=== PATIENT | female | born 1960 | race Caucasian/White ===

== ENCOUNTER → 2016-12-08 | Outpatient (CLI) | payer BC ==
--- NOTE | 2016-12-08 10:33 | WWHP ---
DATE OF SERVICE: 12/08/2016 CHIEF COMPLAINT: The patient is here for her routine gynecologic exam and mammogram. HPI: This is a 56-year-old G0 with an LMP of 2008. The patient is without gynecologic complaints. PAST MEDICAL HISTORY: Type 2 diabetes, chronic hypertension and gastroesophageal reflux disease. MEDICATIONS: 1. Xigduo 02/1000 mg 1 daily. 2. Januvia 100 mg daily. 3. Omeprazole 20 mg daily. 4. Aleve 2 daily. 5. Lisinopril 10 mg daily. 6. Triamterene hydrochlorothiazide 37.5/25 one every other day. 7. Calcium with vitamin D3 1 daily. 8. Multivitamin 1 daily. ALLERGIES: No known drug allergies. PAST SURGICAL HISTORY: Unremarkable. 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 SOCIAL HISTORY: She quit smoking in 2009 and has 0 to 1 alcoholic drink per month and denies drug use. She has been since 1987 and is retired from [employer]. She cares for her , who had a stroke approximately 2004. REVIEW OF SYSTEMS: She has gained about 6 pounds over the last year. She denies respiratory, cardiac, or GI problems. PHYSICAL EXAM: Blood pressure 142/82. Height 5 feet 5 inches. Weight 240 pounds. Temperature 97.6, pulse 85. This a well-developed, heavyset white female who is alert and oriented x3 in no acute distress. HEENT is within normal limits. NECK: Supple without mass or thyromegaly. CHEST AND LUNGS: Clear to auscultation. HEART: Regular rate and rhythm. Breasts are without mass or discharge. Axillary exam is negative for adenopathy. BACK: Negative for CVA tenderness. ABDOMEN: Obese, soft, nontender, without palpable masses. PELVIC EXAM: External genitalia reveals mild atrophy without lesions. Cervix and vagina reveal mild atrophy without lesions. There is no evidence of prolapse. The uterus is midposition, nongravid size and nontender. There are no palpable adnexal masses or tenderness. Bimanual exam is somewhat limited secondary to her size. Rectovaginal exam is negative for mass or tenderness and is negative for occult blood. EXTREMITIES: Nontender. IMPRESSION: A 56-year-old menopausal female with unremarkable gynecologic exam. PLAN: 1. Pap smear was deferred, since she had a normal one less than 2 years ago. 2. Self breast examination was discussed. 3. Mammogram will be done today. 4. Osteoporosis prevention was discussed. 5. Colonoscopy was recommended and she states she will look into doing this, this year. 6. She will return in one year.
--- NOTE | 2016-12-09 10:33 | MM ---
Reason for exam: screening (asymptomatic). Last mammogram was performed 1 year ago. History: Patient is postmenopausal and is nulliparous. Physical Findings: A clinical breast exam by your physician is recommended on an annual basis and results should be correlated with mammographic findings. MG 3D Screening Mammo W/Cad Bilateral CC and MLO view(s) were taken. Prior study comparison: December 04, 2015, bilateral MG 3d screening mammo w/cad. November 20, 2014, bilateral MG screening mammo w CAD. November 17, 2013, bilateral digital screening mammo w/CAD. November 16, 2012, bilateral digital screening mammo w/CAD. The breast tissue is heterogeneously dense. This may lower the sensitivity of mammography. There is no discrete abnormality. No significant changes when compared with prior studies. ASSESSMENT: Negative, BI-RAD 1 RECOMMENDATION: Routine screening mammogram of both breasts in 1 year.
== END | disposition home or self-care (01) ==
LOC: WWCWWP 09:16
PROVIDERS: ATTEND Obstetrics & Gynecology
DX: Z12.31 Encounter for screening mammogram for malignant neoplasm of breast (principal)
CPT/HCPCS: 77063; G0202

== ENCOUNTER → 2017-12-21 | Outpatient (CLI) | payer BC ==
[2017-12-21 08:17] VITALS: BP 123/66; PULSE 77; TEMP 97.9; BMI 39.1
--- NOTE | 2017-12-21 08:58 | P.HPOB ---
History of Present Illness H&P Date: 12/21/17 Chief Complaint: The patient is here for her routine gynecologic exam and mammogram. This is a 57-year-old G0 with an LMP of 2007. The patient is without gynecologic complaints and denies any postmenopausal bleeding. Review of Systems She denies respiratory, cardiac, or G.I. problems. Past Medical History Past Medical History: No Reported History, Diabetes Mellitus, GERD/Reflux, Hypertension History of Any Multi-Drug Resistant Organisms: None Reported Past Surgical History: No Surgical Hx Reported Smoking Status: Former smoker Past Alcohol Use History: Occasional (0-1 drink/month) - Past Family History Father Family Medical History: Cancer, Myocardial Infarction ([place]) Additional Family Medical History / Comment(s): HEART DISEASE,BONE Mother Family Medical History: Rheumatoid Arthritis (RA) Medications and Allergies Home Medications and Allergies Comment(s): Xigduo 5/1000mg 1 daily. Januvia 100 mg daily. Omeprazole 20 mg daily. Alleve to daily. Lisinopril 10 mg daily. Triamterene hydrochlorothiazide 37.5/ 25 1 every other day. Calcium with vitamin D 31 daily. Multivitamin 1 daily. Exam - Vital Signs Vital signs: Vital Signs Temp Pulse BP 12/21/17 08:05 97.9 F 77 123/66 Intake and Output 12/20/17 12/21/17 12/21/17 22:59 06:59 14:59 Other: Weight 106.633 kg Patient Weight 12/22/17 06:59 Weight 106.633 kg This is a well-developed well-nourished white female who is alert and oriented times 3 in no acute distress. BMI 39. HEENT: Within normal limits. NECK: Supple without mass or thyromegaly. CHEST AND LUNGS: Clear to auscultation. HEART: Regular rate and rhythm. BREASTS: Are without mass or discharge. AXILLARY EXAM: Negative for adenopathy. BACK: Negative for CVA tenderness. ABDOMEN: Obese, Soft, nontender, without palpable masses. PELVIC EXAM: Normal external genitalia with mild atrophy. Cervix and vagina appear normal with mild to moderate atrophy. There is no unusual discharge. There is no evidence of prolapse. The uterus is midposition, nongravid size and nontender. There are no palpable adnexal masses or tenderness. Bimanual examination is somewhat limited secondary to her size. RECTAL EXAM: recto vaginal exam is negative for mass or tenderness and is negative for occult blood. EXTREMITIES: Nontender. IMPRESSION: 1. 57-year-old menopausal female with normal gynecologic exam. PLAN: 1. Pap smear was performed. 2. Self breast examination was discussed. 3. Screening mammogram will be done today. 4. Osteoporosis prevention was discussed. We'll plan during a bone density test in one year. 5. I recommended screening colonoscopy and she states she will do this through Dr. Mcmahan. 6. She will return in one year.
--- NOTE | 2017-12-23 10:33 | MM ---
Reason for exam: screening (asymptomatic). Last mammogram was performed 1 year ago. History: Patient is postmenopausal and is nulliparous. Physical Findings: A clinical breast exam by your physician is recommended on an annual basis and results should be correlated with mammographic findings. MG 3D Screening Mammo W/Cad Bilateral CC and MLO view(s) were taken. Prior study comparison: December 08, 2016, bilateral MG 3d screening mammo w/cad. December 04, 2015, bilateral MG 3d screening mammo w/cad. There are scattered fibroglandular densities. Developing asymmetry left outer CC view. This finding is changed when compared with previous exams. ASSESSMENT: Probably benign, BI-RAD 3 RECOMMENDATION: Follow-up diagnostic mammogram of the left breast in 6 months.
== END | disposition home or self-care (01) ==
LOC: WWCWWP 07:53
PROVIDERS: ATTEND Obstetrics & Gynecology
DX: Z12.31 Encounter for screening mammogram for malignant neoplasm of breast (principal)
CPT/HCPCS: 77063; 77067

== ENCOUNTER → 2018-06-27 | Outpatient (CLI) | payer BC ==
--- NOTE | 2018-06-28 08:03 | MM ---
Reason for exam: follow-up at short interval from prior study. Last mammogram was performed 6 months ago. History: Patient is postmenopausal and is nulliparous. Physical Findings: Nurse did not find any significant physical abnormalities on exam. MG Diagnostic Mammo LT w CAD CC and MLO view(s) were taken of the left breast. Prior study comparison: December 21, 2017, bilateral MG 3d screening mammo w/cad. December 08, 2016, bilateral MG 3d screening mammo w/cad. There are scattered fibroglandular densities. Lateral asymmetric density remains unchanged. Medial asymmetric density which persists on additional views. Ultrasound recommended. These results were verbally communicated with the patient and result sheet given to the patient on 06/27/18. ASSESSMENT: Incomplete: need additional imaging evaluation, BI-RAD 0 RECOMMENDATION: Ultrasound of the left breast. (left medial half)
--- NOTE | 2018-06-28 08:05 | USB ---
Reason for exam: additional evaluation requested from abnormal screening. History: Patient is postmenopausal and is nulliparous. US Breast Limited LT Left limited breast ultrasound including focal area of concern, retroareolar and axilla demonstrates no cystic or solid lesion seen. Scanned 7-12 o'clock. Additional short interval follow up recommended. These results were verbally communicated with the patient and result sheet given to the patient on 06/27/18. ASSESSMENT: Probably benign, BI-RAD 3 RECOMMENDATION: Follow-up diagnostic mammogram of both breasts in 6 months. (total 1 year follow up)
== END ==
LOC: RADMAMWWP 10:48
PROVIDERS: ATTEND Obstetrics & Gynecology
DX: R92.8 Other abnormal and inconclusive findings on diagnostic imaging of breast (principal)
CPT/HCPCS: 77065

== ENCOUNTER 2018-12-28 08:48 | Day surgery (SDC) | payer BC ==
[2018-12-26 14:17] VITALS: BMI 37.1
[~2018-12-28 08:48] MED LIST: LACTATED RINGERS 1,000 ML IV SCH; LIDOCAINE 1% 20 ML VIAL (10MG/ML) FOR IV START INTRADERMA PRN
[2018-12-28 09:44] VITALS: RESP 16; TEMP 97.1
[2018-12-28 09:44] LABS: Glucose,Whole Blood 135 mg/dL (75-99)
[2018-12-28] MEDS ORDERED: PROPOFOL 10 MG/ML 20 ML VIAL IV ONE (10:09)
--- NOTE | 2018-12-28 11:02 | P.PCN ---
Date of Procedure: 12/28/18 Description of Procedure: BRIEF HISTORY: Patient is a 58-year-old pleasant female scheduled for an elective colonoscopy as a part of colon cancer screening after having a positive cologuard in the outpatient setting. The patient denies any family history of colon cancer, any rectal bleeding, change in bowel habits. She has had no prior colonoscopy. PROCEDURE PERFORMED: Aborted/failed Colonoscopy. PREOPERATIVE DIAGNOSIS: Positive cologaurd, colon cancer screening. ESTIMATED BLOOD LOSS: Minimal. IV sedation per Anesthesia. PROCEDURE: After informed consent was obtained, the patient, was brought into the endoscopy unit. IV sedation was administered by Anesthesia under continuous monitoring. Digital rectal examination was normal. Initially the Olympus CF-190 flexible video colonoscope was then inserted in the rectum, gradually advanced into the sigmoid colon. Numerous diverticula were noted through the visualized colon and the colon was fixed and tortuous. The scope was not able to be safely advanced, and at this time was exchanged for a pediatric scope. Attempts to pass the sigmoid again unsuccessful and at this time the procedure was aborted. The patient tolerated the procedure well. IMPRESSION: 1. Aborted colonoscopy secondary to a fixed tortuous colon. 2. Sigmoid diverticulosis. RECOMMENDATIONS: Findings of this examination were discussed with the patient and her sister. Okay for diet today. Given the patient's positive screening with cologaurd we'll reschedule the patient for repeat colonoscopy with Dr. Robertson. Repeat colonoscopy is also unsuccessful patient will benefit from x-ray barium enema.
[2018-12-28 11:27] VITALS: BP 124/81; PULSE 77
== END 2018-12-28 12:13 | disposition home or self-care (01) ==
LOC: ORWHC2ENDO 08:48
PROVIDERS: ATTEND Internal Medicine
DX: Z12.11 Encounter for screening for malignant neoplasm of colon (principal); K57.30 Diverticulosis of large intestine without perforation or abscess without bleeding; Z53.09 Procedure and treatment not carried out because of other contraindication; I10 Essential (primary) hypertension; E78.5 Hyperlipidemia, unspecified; E11.9 Type 2 diabetes mellitus without complications; Z87.891 Personal history of nicotine dependence; K21.9 Gastro-esophageal reflux disease without esophagitis; Z79.899 Other long term (current) drug therapy
CPT/HCPCS: 45330; J2704; 45378

== ENCOUNTER → 2019-01-17 | Outpatient (CLI) | payer BC ==
[2019-01-17 13:00] VITALS: BP 135/77; PULSE 78; RESP 16; TEMP 97.1; BMI 39.6
--- NOTE | 2019-01-17 13:34 | P.HPOB ---
History of Present Illness H&P Date: 01/17/19 Chief Complaint: The patient is here for her routine gynecologic exam and ma mmogram. This is a 58-year-old G0 with an LMP of 2008. The patient is without gynecologic complaints and then denies any postmenopausal bleeding. The patient's screening mammogram on 12/21/2017 required a left breast workup. Left breast ultrasound done in June 2018 was probably benign. Bilateral diagnostic mammogram is now due. Review of Systems The patient has lost 9 pounds over the last year. She denies respiratory, cardiac, or G.I. problems. Past Medical History Past Medical History: Diabetes Mellitus, GERD/Reflux, Hypertension, Osteoarthritis (OA), Skin Disorder Additional Past Medical History / Comment(s): hx peptic ulcer yrs ago, psoriasis, type II diabetes. 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 History of Any Multi-Drug Resistant Organisms: None Reported Past Surgical History: No Surgical Hx Reported Additional Past Surgical History / Comment(s): D&C. Colonoscopy 2018(Incomplete). Past Anesthesia/Blood Transfusion Reactions: Family History of Problems w/ Anesthesia Additional Past Anesthesia/Blood Transfusion Reaction / Comment(s): sister-PONV Past Psychological History: No Psychological Hx Reported Smoking Status: Former smoker Past Alcohol Use History: Occasional (One per month) Additional Past Alcohol Use History / Comment(s): quit smoking 2009, smoked for 5 yrs, < 1 PPD Past Drug Use History: None Reported Additional History: She has been since 1987 and is retired from [employer]. She cares for her who had a stroke in 2004. - Past Family History Father Family Medical History: Cancer, Myocardial Infarction ([place]) Additional Family Medical History / Comment(s): HEART DISEASE,BONE Mother Family Medical History: Rheumatoid Arthritis ([place]) Medications and Allergies Home Medications Medication Instructions Recorded Confirmed Type Dapagliflozin/Metformin HCl 1 each PO 1800 12/21/17 01/17/19 History [Xigduo Xr 5 mg-1,000 mg Tablet] Lisinopril [Zestril] 10 mg PO 1800 12/21/17 01/17/19 History Multivitamins, Thera [Multivitamin 1 tab PO DAILY 12/21/17 01/17/19 History (formulary)] Naproxen Sodium [Aleve] 440 mg PO 1800 12/21/17 01/17/19 History Omeprazole 20 mg PO 1800 12/21/17 01/17/19 History Triamterene-Hctz 37.5-25Mg 1 cap PO Q48H 12/21/17 01/17/19 History [Dyazide 37.5-25 Capsule] sitaGLIPtin [Januvia] 100 mg PO 1800 12/21/17 01/17/19 History Atorvastatin [Lipitor] 10 mg PO 1800 12/26/18 01/17/19 History [place]-3S/Dha/Epa/Fish Oil/D3 [Fish 1 each PO 1800 12/26/18 01/17/19 History Oil Gummies] Allergies Allergy/AdvReac Type Severity Reaction Status Date / Time No Known Allergies Allergy Verified 01/17/19 12:54 Exam Vital Signs Temp Pulse Resp BP Pulse Ox 01/17/19 12:57 97.1 F L 78 16 135/77 97 Intake and Output 01/16/19 01/17/19 01/17/19 22:59 06:59 14:59 Other: Weight 104.78 kg Height 5'4", weight 231 pounds, BMI 39.7. This is a well-developed well-nourished obese white female who is alert and oriented times 3 in no acute distress. HEENT: Within normal limits. NECK: Supple without mass or thyromegaly. CHEST AND LUNGS: Clear to auscultation. HEART: Regular rate and rhythm. BREASTS: Are without mass or discharge. AXILLARY EXAM: Negative for adenopathy. BACK: Negative for CVA tenderness. ABDOMEN: Soft, obese, nontender, without palpable masses. PELVIC EXAM: Normal external genitalia with mild to moderate atrophy. Cervix and vagina appear normal with mild atrophy. There is no unusual discharge. There is no evidence of prolapse. The uterus is midposition, nongravid size and nontender. There are no palpable adnexal masses or tenderness. Bimanual examination is somewhat limited secondary to her size. RECTAL EXAM: rectovaginal exam is negative for mass or tenderness and is negative for occult blood. EXTREMITIES: Nontender. IMPRESSION: 1. 58-year-old menopausal female with normal gynecologic exam. 2. Overweight. PLAN: 1. Pap smear was deferred since she had a normal one on 12/21/2017. 2. Self breast awareness was discussed with the patient. 3. Bilateral diagnostic mammogram will be done today. 4. Osteoporosis prevention was discussed. I have stressed the importance of adequate calcium, vitamin D and regular exercise. Recommended amounts of calcium and vitamin D were also discussed. I have recommended bone density screening since she has never had this done. She would like to do this next year. 5. She states her colonoscopy that was recently done was incomplete and she is scheduled to have this redundant in the next few months. 6.She was advised to return in one year for her annual well woman exam.
--- NOTE | 2019-01-17 13:57 | MM ---
Reason for exam: additional evaluation requested from prior study. Last mammogram was performed 7 months ago. History: Patient is postmenopausal and is nulliparous. Physical Findings: Dr. García did breast exam. MG 3D Diag Mammo W/Cad MICHAEL Bilateral CC and MLO view(s) were taken. Prior study comparison: June 27, 2018, left breast MG diagnostic mammo LT w CAD. December 21, 2017, bilateral MG 3d screening mammo w/cad. The breast tissue is heterogeneously dense. This may lower the sensitivity of mammography. There is chronic nodularity in the right breast. There is no discrete abnormality. No significant new findings when compared with previous films. These results were verbally communicated with the patient and result sheet given to the patient on 01/17/19. ASSESSMENT: Benign, BI-RAD 2 RECOMMENDATION: Routine screening mammogram of both breasts in 1 year.
== END ==
LOC: WWCWWP 12:29
PROVIDERS: ATTEND Obstetrics & Gynecology
DX: R92.8 Other abnormal and inconclusive findings on diagnostic imaging of breast (principal)
CPT/HCPCS: 77062; 77066

== ENCOUNTER 2019-02-08 07:50 | Day surgery (SDC) | payer BC ==
[2019-02-03 17:41] VITALS: BMI 38.7
[~2019-02-08 07:50] MED LIST changes: -LIDOCAINE 1% 20 ML VIAL (10MG/ML) FOR IV START INTRADERMA PRN
[2019-02-08 08:13] VITALS: TEMP 98.7
[2019-02-08] MEDS ORDERED: LACTATED RINGERS 1,000 ML IV ONE ×2 (08:20)
[2019-02-08] MEDS ORDERED: LIDOCAINE 1% INJ 10MG/ML (20 ML MDV) ONE (08:27)
[2019-02-08] MEDS ORDERED: PROPOFOL 10 MG/ML 20 ML VIAL IV ONE (08:27)
[2019-02-08 08:28] LABS: Glucose,Whole Blood 150 mg/dL (75-99)
--- NOTE | 2019-02-08 08:52 | P.PCN ---
Date of Procedure: 02/08/19 Procedure(s) Performed: BRIEF HISTORY: Patient is a 58-year-old pleasant female scheduled for an elective colonoscopy as a part of screening for colorectal neoplasia. She was noted to have positive cologuard and hence had an attempted colonoscopy by last month that was unsuccessful. She is hence scheduled for repeat screening colonoscopy today. PROCEDURE PERFORMED: Colonoscopy. PREOPERATIVE DIAGNOSIS: Positive cologuard IV sedation per Anesthesia. PROCEDURE: After informed consent was obtained, the patient, was brought into the endoscopy unit. IV sedation was administered by Anesthesia under continuous monitoring. Digital rectal examination was normal. Initially the Olympus CF-160 flexible video colonoscope was then inserted in the rectum, gradually advanced into the cecum without any difficulty. Careful examination was performed as the scope was gradually being withdrawn. Ileocecal valve and the appendiceal orifice were visualized and appeared normal. Prep was excellent. Mucosa of the cecum, ascending colon, transverse colon, descending colon, sigmoid colon, and rectum appeared normal. Moderate sigmoid diverticula seen. Retroflexion was performed in the rectum and no lesions were seen. The patient tolerated the procedure well. IMPRESSION: Normal-appearing colon from rectum to cecum with no evidence of colorectal neoplasia. Moderate sigmoid diverticulosis. RECOMMENDATIONS: Findings of this examination were discussed with the patient as well as a family. She was advised to have a repeat screening colonoscopy in 10 years.
[2019-02-08 09:07] VITALS: BP 139/84; PULSE 71; RESP 18
== END 2019-02-08 09:46 | disposition home or self-care (01) ==
LOC: ORWHC2ENDO 07:50
PROVIDERS: ATTEND Internal Medicine Gastroenterology
DX: Z12.11 Encounter for screening for malignant neoplasm of colon (principal); K57.30 Diverticulosis of large intestine without perforation or abscess without bleeding; I10 Essential (primary) hypertension; E11.9 Type 2 diabetes mellitus without complications; K21.9 Gastro-esophageal reflux disease without esophagitis; Z79.899 Other long term (current) drug therapy
CPT/HCPCS: J2001; J2704; G0121

== ENCOUNTER → 2020-04-16 | Outpatient (CLI) | payer BC ==
[2020-04-16 15:25] VITALS: BP 128/79; PULSE 83; RESP 18; TEMP 98.3
--- NOTE | 2020-04-16 16:07 | P.HPOB ---
History of Present Illness H&P Date: 04/16/20 Chief Complaint: The patient is here for her routine gynecologic exam and ma mmogram. This is a 59-year-old G0 with an LMP of 2008. The patient has been experiencing vulvar pruritus for about 6 months. She denies any significant discharge or odor. She has not been sexually active in recent years. She is otherwise without complaints and denies postmenopausal bleeding. Review of Systems The patient has lost 3 pounds over the last year. She denies respiratory, cardiac, or G.I. problems. Past Medical History Past Medical History: Diabetes Mellitus, GERD/Reflux, Hyperlipidemia, Hypertension, Osteoarthritis (OA), Skin Disorder Additional Past Medical History / Comment(s): hx peptic ulcer yrs ago, psoriasis, type II diabetes. 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 History of Any Multi-Drug Resistant Organisms: None Reported Past Surgical History: No Surgical Hx Reported Additional Past Surgical History / Comment(s): D&C. Colonoscopy 2019(Next after 10yr). Past Anesthesia/Blood Transfusion Reactions: Family History of Problems w/ Anesthesia Additional Past Anesthesia/Blood Transfusion Reaction / Comment(s): sister-PONV Past Psychological History: No Psychological Hx Reported Smoking Status: Former smoker Past Alcohol Use History: Occasional (One per month) Additional Past Alcohol Use History / Comment(s): quit smoking 2009, smoked for 5 yrs, < 1 PPD Past Drug Use History: None Reported Additional History: She has been since 1987 and is retired from [employer]. Her had a stroke in 2004. She is not sexually active. - Past Family History Father Family Medical History: Cancer, Myocardial Infarction ([place]) Additional Family Medical History / Comment(s): HEART DISEASE,BONE Mother Family Medical History: Rheumatoid Arthritis ([place]) Medications and Allergies Home Medications Medication Instructions Recorded Confirmed Type Dapagliflozin/Metformin HCl 1 each PO 179912/21/17 04/16/20 History [Xigduo Xr 5 mg-1,000 mg Tablet] Lisinopril [Zestril] 10 mg PO 1800 12/21/17 04/16/20 History Multivitamins, Thera [Multivitamin 1 tab PO DAILY 12/21/17 04/16/20 History (formulary)] Naproxen Sodium [Aleve] 440 mg PO 179912/21/17 04/16/20 History Omeprazole 20 mg PO 1800 12/21/17 04/16/20 History Triamterene-Hctz 37.5-25Mg 1 cap PO Q48H 12/21/17 04/16/20 History [Dyazide 37.5-25 Capsule] sitaGLIPtin [Januvia] 100 mg PO 1800 12/21/17 04/16/20 History Atorvastatin [Lipitor] 10 mg PO 1800 12/26/18 04/16/20 History [place]-3S/Dha/Epa/Fish Oil/D3 [Fish 1 each PO 1800 12/26/18 04/16/20 History Oil Gummies] Cholecalciferol [Vitamin D3 (25 5,000 unit PO DAILY 04/16/20 04/16/20 History Mcg = 1000 Iu)] Allergies Allergy/AdvReac Type Severity Reaction Status Date / Time No Known Allergies Allergy Verified 04/16/20 15:17 Exam Vital Signs Temp Pulse Resp BP Pulse Ox 04/16/20 15:20 98.3 F 83 18 128/79 96 Intake and Output 04/16/20 04/16/20 04/16/20 06:59 14:59 22:59 Other: Weight 103.419 kg Height 5 feet 4 inches, weight 228 pounds, BMI 39.1. This is a well-developed well-nourished heavyset white female who is alert and oriented times 3 in no acute distress. HEENT: Within normal limits. NECK: Supple without mass or thyromegaly. CHEST AND LUNGS: Clear to auscultation. HEART: Regular rate and rhythm. BREASTS: Are without mass or discharge. AXILLARY EXAM: Negative for adenopathy. BACK: Negative for CVA tenderness. ABDOMEN: Soft, obese, nontender, without palpable masses. PELVIC EXAM: External genitalia reveals generalized moderate erythema without focal lesions. There is no significant pallor or excoriation. The erythema extends to the perineum, but not to the juliano-anal area. Cervix and vagina appear normal with mild atrophy. The cervix is somewhat stenotic secondary to atrophy. There is no unusual discharge. There is no evidence of prolapse. The uterus is midposition, nongravid size and nontender. There are no palpable adnexal masses or tenderness. Bimanual examination is somewhat limited secondary to her size. RECTAL EXAM: Rectovaginal exam is negative for mass or tenderness and is negative for occult blood. EXTREMITIES: Nontender. IMPRESSION: 1. 59-year-old menopausal female with generalized vulvar erythema and vulvar pruritus. Differential diagnosis will include chronic irritation, Gail vulvitis and at this time lichen sclerosus is less likely based on its appearance. 2. Overweight. PLAN: 1. Pap smear was performed. 2. Self breast awareness was discussed with the patient. 3. Screening mammogram will be done today. 4. Affirm testing for Gail, Gardnerella, and Trichomonas was obtained from the vagina. If this is unremarkable she will be treated with Kenalog 0.1% cream twice a day when necessary. This patient will be sent electronically to [facility] pharmacy in [facility]. She was also advised to not over wash, try to avoid scratching and call if her symptoms are not improving. 5. Osteoporosis prevention was discussed. I have stressed the importance of adequate calcium, vitamin D and regular exercise. Recommended amounts of calcium and vitamin D were also discussed. She is not able to do the bone density testing at this time because of the appointment delays secondary to the Covid pandemic. I have offered to give her an order slip for this to do at a later date, but she states she would like to do next year. 6. She was advised to return in one year for her annual well woman exam and as needed.
--- NOTE | 2020-04-17 13:39 | MM ---
Reason for exam: screening (asymptomatic). Last mammogram was performed 1 year and 3 months ago. History: Patient is postmenopausal and is nulliparous. Physical Findings: A clinical breast exam by your physician is recommended on an annual basis and results should be correlated with mammographic findings. MG 3D Screening Mammo W/Cad Bilateral CC and MLO view(s) were taken. Prior study comparison: January 17, 2019, bilateral MG 3d diag mammo w/cad MICHAEL. June 27, 2018, left breast MG diagnostic mammo LT w CAD. The breast tissue is heterogeneously dense. This may lower the sensitivity of mammography. No significant changes when compared with prior studies. ASSESSMENT: Benign, BI-RAD 2 RECOMMENDATION: Routine screening mammogram of both breasts in 1 year.
--- NOTE | 2020-04-19 17:14 | P.PN ---
Progress Note - Text Progress Note Date: 04/19/20 Affirm testing from 04/16/20 was negative for Gail, Garderella, and Trichomonas. The patient was notified by phone. She has picked up the Kenalog 0.1% cream and says it is helping. After 1-2 weeks she will wean off the cream and use it only prn. When she weans off, she can try a small amount of petroleum jelly as a protective layer. She was instructed not to over wash and to use minimal soap. She is to call if symptoms persist after 3 weeks. We will consider vulvar biopsy if symptoms do not improve. She will return in 1 year and as needed.
== END | disposition home or self-care (01) ==
LOC: WWCWWP 15:09
PROVIDERS: ATTEND Obstetrics & Gynecology
DX: Z12.31 Encounter for screening mammogram for malignant neoplasm of breast (principal)
CPT/HCPCS: 77063; 77067

== ENCOUNTER → 2021-05-20 | Outpatient (CLI) | payer BC ==
[2021-05-20 09:32] VITALS: BP 124/75; PULSE 65; RESP 18; TEMP 98.9
--- NOTE | 2021-05-20 10:10 | P.HPOB ---
History of Present Illness H&P Date: 05/20/21 Chief Complaint: The patient is here for her routine gynecologic exam and ma mmogram. This is a 60-year-old G0 with an LMP of 2008. The patient states she still occasionally has some vulvar pruritus and she states the Kenalog cream was very helpful which she used as needed. She no longer has the cream. She also has noticed some soreness in the right axillary region and she thinks it may be related to some shoulder problems she has been having. Review of Systems The patient's weight has been stable over the last year. She denies respiratory, cardiac, or G.I. problems. Past Medical History Past Medical History: Diabetes Mellitus, GERD/Reflux, Hyperlipidemia, Hypertension, Osteoarthritis (OA), Skin Disorder Additional Past Medical History / Comment(s): hx peptic ulcer yrs ago, psoriasis, type II diabetes. 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 History of Any Multi-Drug Resistant Organisms: None Reported Past Surgical History: No Surgical Hx Reported Additional Past Surgical History / Comment(s): D&C. Colonoscopy 2019(Next after 10yr). Past Anesthesia/Blood Transfusion Reactions: Family History of Problems w/ Anesthesia Additional Past Anesthesia/Blood Transfusion Reaction / Comment(s): sister-BÁRBARA Past Psychological History: No Psychological Hx Reported Smoking Status: Former smoker Past Alcohol Use History: Occasional (0-1 per month) Additional Past Alcohol Use History / Comment(s): quit smoking 2009, smoked for 5 yrs, < 1 PPD Past Drug Use History: None Reported Additional History: She has been since 1987 and is not sexually active. She retired from [employer]. Her had a stroke in 2004. - Past Family History Father Family Medical History: Cancer, Myocardial Infarction ([place]) Additional Family Medical History / Comment(s): HEART DISEASE, BONE cancer Mother Family Medical History: Rheumatoid Arthritis (RA) Medications and Allergies Home Medications Medication Instructions Recorded Confirmed Type Dapagliflozin/Metformin HCl 1 each PO 1800 12/21/17 05/20/21 History [Xigduo Xr 5 mg-1,000 mg Tablet] Multivitamins, Thera [Multivitamin 1 tab PO DAILY 12/21/17 05/20/21 History (formulary)] Naproxen Sodium [Aleve] 440 mg PO 1800 12/21/17 05/20/21 History Omeprazole 20 mg PO 1800 12/21/17 05/20/21 History Triamterene-Hctz 37.5-25Mg 1 cap PO Q48H 12/21/17 05/20/21 History [Dyazide 37.5-25 Capsule] lisinopriL [Zestril] 10 mg PO 1800 12/21/17 05/20/21 History sitaGLIPtin [Januvia] 100 mg PO 1800 12/21/17 05/20/21 History Atorvastatin [Lipitor] 10 mg PO 1800 12/26/18 05/20/21 History [place]-3S/Dha/Epa/Fish Oil/D3 [Fish 1 each PO 1800 12/26/18 05/20/21 History Oil Gummies] Cholecalciferol [Vitamin D3 (25 5,000 unit PO DAILY 04/16/20 05/20/21 History Mcg = 1000 Iu)] Triamcinolone 0.1% Cream [Kenalog 1 applicatio TOPICAL BID PRN #30 gm 04/16/20 05/20/21 Rx 0.1% Cream] Allergies Allergy/AdvReac Type Severity Reaction Status Date / Time No Known Allergies Allergy Verified 05/20/21 09:23 Exam Vital Signs Temp Pulse Resp BP Pulse Ox 05/20/21 09:26 98.9 F 65 18 124/75 98 Intake and Output 05/19/21 05/20/21 05/20/21 22:59 06:59 14:59 Other: Weight 102.965 kg Height 5 feet 4 inches, weight 227 pounds, BMI 39.0. This is a well-developed well-nourished white female who is alert and oriented times 3 in no acute distress. HEENT: Within normal limits. NECK: Supple without mass or thyromegaly. CHEST AND LUNGS: Clear to auscultation. HEART: Regular rate and rhythm. BREASTS: Are without mass or discharge. There is bilateral erythema in the crease beneath each breast consistent with erythema intertrigo. AXILLARY EXAM: Negative for adenopathy. This is bilaterally nontender. BACK: Negative for CVA tenderness. ABDOMEN: Soft, nontender, without palpable masses. PELVIC EXAM: External genitalia reveals mild atrophy with generalized mild erythema without focal lesions. There is no significant pallor or excoriation. Cervix and vagina appear normal mild erythema. There is no unusual discharge. There is no evidence of prolapse. The uterus is midposition, nongravid size and nontender. There are no palpable adnexal masses or tenderness. RECTAL EXAM: Rectovaginal exam is negative for mass or tenderness and is negative for occult blood. EXTREMITIES: Nontender. IMPRESSION: 1. 60-year-old menopausal female with mild vulvitis with no evidence of abnormal discharge. 2. Bilateral erythema intertrigo in the crease beneath each breast. PLAN: 1. Pap smear was deferred since she had a normal one on 04/16/2020. 2. Self breast awareness was discussed with the patient. We have discussed the symptoms associated with inflammatory breast cancer. 3. Screening mammogram will be done today. 4. Nystatin powder twice a day which she can use beneath the breasts. She was also instructed to try to keep the area clean and dry. 5. Kenalog 0.1% cream twice a day as needed for vulvar itching. The electronic prescriptions will be sent to [facility] pharmacy in [facility]. 6.Osteoporosis prevention was discussed. I have stressed the importance of adequate calcium, vitamin D and regular exercise. Recommended amounts of calcium and vitamin D were also discussed. I have recommended bone density screening since she has never had this done. The order slip was given to the patient for this. 7. She has completed her Covid vaccination series. 8. She was advised to return in one year for her annual well woman exam.
== END | disposition home or self-care (01) ==
LOC: WWCWWP 09:17
PROVIDERS: ATTEND Obstetrics & Gynecology
DX: Z12.31 Encounter for screening mammogram for malignant neoplasm of breast (principal); N76.2 Acute vulvitis
CPT/HCPCS: 77063; 77067

== ENCOUNTER → 2021-05-27 | Outpatient (CLI) | payer BC ==
--- NOTE | 2021-05-27 12:11 | MM ---
Reason for exam: screening (asymptomatic). Last mammogram was performed 1 year and 1 month ago. History: Patient is postmenopausal and is nulliparous. Physical Findings: A clinical breast exam by your physician is recommended on an annual basis and results should be correlated with mammographic findings. MG Follow Up RT No Charge CC and MLO view(s) were taken of the right breast. Prior study comparison: May 20, 2021, bilateral MG 3d screening mammo w/cad. April 16, 2020, bilateral MG 3d screening mammo w/cad. January 17, 2019, bilateral MG 3d diag mammo w/cad MICHAEL. There are scattered fibroglandular densities. There are benign appearing round calcifications bilaterally. There is no discrete abnormality. ASSESSMENT: Benign, BI-RAD 2 RECOMMENDATION: Routine screening mammogram of both breasts in 1 year.
== END | disposition home or self-care (01) ==
LOC: RADMAMWWP 08:52
PROVIDERS: ATTEND Obstetrics & Gynecology
DX: Z12.31 Encounter for screening mammogram for malignant neoplasm of breast (principal); Z53.9 Procedure and treatment not carried out, unspecified reason

== ENCOUNTER → 2021-06-10 | Outpatient (CLI) | payer BC ==
--- NOTE | 2021-06-10 17:03 | BD ---
EXAMINATION TYPE: Axial Bone Density DATE OF EXAM: 06/10/2021 COMPARISON: NONE CLINICAL HISTORY: Height: 5 FT 4 1/2 IN Weight: 218 FRAX RISK QUESTIONS: Alcohol (3 or more units per day): NO Family History (Parent hip fracture): UNSURE Glucocorticoids (More than 3mos): NO (Ex: prednisone, prednisolone, methylprednisolone, dexamethasone, and hydrocortisone). History of Fracture in Adulthood: YES Secondary Osteoporosis: 1. Type 1 Diabetes: NO 2. Hyperthyroidism: NO 3. Menopause before 45: NO 4. Malnutrition: NO 5. Chronic liver disease: NO Rheumatoid Arthritis: UNSURE Current Tobacco Use: NO RISK FACTORS HISTORY OF: Surgery to Spine/Hip(right/left)/Wrist (right/left): NO Family History of Osteoporosis: YES Active: YES Diet low in dairy products/other sources of calcium: NO Postmenopausal woman: AGE 48 Take estrogen and/or progesterone medications: NO Lost more than 2 inches in height since high school: NO MEDICATIONS: Additional Medications: JANUVIA, OMEPRAZOLE,LISINOPRIL, XIGOLUO, ATORVASTATIN, TRIAMTERENE Additional History: EXAM MEASUREMENTS: Bone mineral densitometry was performed using the [employer] System. Bone mineral density as measured about the Lumbar spine is: ----- L1-L4(G/cm2): 1.355 T Score Values are as follows: ----- L2: 0.1 ----- L3: 1.6 ----- L4: 3.1 ----- L1-L4: 1.5 Bone mineral density has: INCREASED 13.7 % since study of: 2008 Bone mineral density about the R hip (g/cm2): 1.235 Bone mineral density about the L hip (g/cm2): 1.088 T Score values are as follows: -----R Neck: 1.4 -----L Neck: 0.4 -----R Total: 0.9 -----L Total: 0.5 Bone mineral density has: DECREASED -4.9 % since study of: 2008 IMPRESSION: Normal (Values between +1 and -1 indicate normal bone mass). Consider repeating this study in 5 year s or sooner if there is some new clinical indication. NOTE: T-SCORE=SD OF THE YOUNG ADULT MEAN.
--- NOTE | 2021-06-11 14:21 | P.PN ---
Progress Note - Text Progress Note Date: 06/11/21 OUTPATIENT FOLLOW-UP NOTE TEST(S)/RESULTS: Bone density test done on 06/10/2021 was normal. METHOD OF NOTIFICATION: She was notified by phone. PATIENT COMMENTS: She is happy to hear this result. DIAGNOSIS: Normal bone density DISCUSSION: PLAN: Repeat bone density in 6 years.
== END | disposition home or self-care (01) ==
LOC: RADBDWWP 07:14
PROVIDERS: ATTEND Obstetrics & Gynecology
DX: Z78.0 Asymptomatic menopausal state (principal)
CPT/HCPCS: 77080

== ENCOUNTER → 2023-06-08 | Outpatient (CLI) | payer BC ==
[2023-06-08 09:31] VITALS: BP 109/70; PULSE 76; RESP 17; TEMP 98.3
--- NOTE | 2023-06-08 10:14 | P.HPOB ---
History of Present Illness H&P Date: 06/08/23 Chief Complaint: The patient is here for her routine gynecologic exam and ma mmogram. This is a 62-year-old G0 with an LMP of 2008. The patient has been treated for occasional vulvar pruritus and uses Kenalog cream as needed for this. She states she has needed the cream only infrequently. She is otherwise without gynecologic complaints. Review of Systems The patient has lost 19 pounds over the last year. She started noticing weight loss when she was started on Ozempic for her diabetes. She denies respiratory, cardiac, or G.I. problems. Past Medical History Past Medical History: Diabetes Mellitus, GERD/Reflux, Hyperlipidemia, Hypertension, Osteoarthritis (OA), Skin Disorder Additional Past Medical History / Comment(s): hx peptic ulcer yrs ago, psoriasis, type II diabetes. 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 History of Any Multi-Drug Resistant Organisms: None Reported Past Surgical History: No Surgical Hx Reported Additional Past Surgical History / Comment(s): D&C. Colonoscopy 2019(Next after 10yr). Past Anesthesia/Blood Transfusion Reactions: Family History of Problems w/ Anesthesia Additional Past Anesthesia/Blood Transfusion Reaction / Comment(s): sister-BÁRBARA Past Psychological History: No Psychological Hx Reported Smoking Status: Former smoker Past Alcohol Use History: Occasional (0-1 per month.) Additional Past Alcohol Use History / Comment(s): quit smoking 2009, smoked for 5 yrs, < 1 PPD Past Drug Use History: None Reported Additional History: She became a in 2022. She is retired. - Past Family History Father Family Medical History: Cancer, Myocardial Infarction ([place]) Additional Family Medical History / Comment(s): HEART DISEASE, BONE cancer Mother Family Medical History: Rheumatoid Arthritis (RA) Medications and Allergies Home Medications Medication Instructions Recorded Confirmed Type Dapagliflozin/Metformin HCl 1 each PO 1800 12/21/17 06/08/23 History [Xigduo Xr 5 mg-1,000 mg Tablet] Multivitamins, Thera [Multivitamin 1 tab PO DAILY 12/21/17 06/08/23 History (formulary)] Omeprazole 20 mg PO 1800 12/21/17 06/08/23 History lisinopriL [Zestril] 10 mg PO 1800 12/21/17 06/08/23 History Atorvastatin [Lipitor] 10 mg PO 1800 12/26/18 06/08/23 History [place]-3S/Dha/Epa/Fish Oil/D3 [Fish 1 each PO 1800 12/26/18 06/08/23 History Oil Gummies] Cholecalciferol [Vitamin D3 (25 5,000 unit PO DAILY 04/16/20 06/08/23 History Mcg = 1000 Iu)] Nystatin 100,000 Unit/gm Powd 1 applic TOPICAL BID 10 Days #1 05/20/21 06/08/23 Rx [Mycostatin Powder] bottle Triamcinolone 0.1% Cream [Kenalog 1 applicatio TOPICAL BID PRN #30 gm 06/02/22 06/08/23 Rx 0.1% Cream] Diclofenac Sodium [Diclofenac 1 dose PO DAILY 06/08/23 06/08/23 History Sodium 0.1% Ophth Soln] Omeprazole 20 mg PO DAILY 06/08/23 06/08/23 History Semaglutide [Ozempic] 2 mg INJ WEEKLY 06/08/23 06/08/23 History Allergies Allergy/AdvReac Type Severity Reaction Status Date / Time No Known Allergies Allergy Verified 06/08/23 09:25 Exam Vital Signs Temp Pulse Resp BP Pulse Ox 06/08/23 09:28 98.3 F 76 17 109/70 98 Intake and Output 06/07/23 06/08/23 06/08/23 22:59 06:59 14:59 Other: Weight 92.079 kg Height 5 feet 4 inches, weight 203 pounds, BMI 34.8. This is a well-developed well-nourished white female who is alert and oriented times 3 in no acute distress. HEENT: Within normal limits. NECK: Supple without mass or thyromegaly. CHEST AND LUNGS: Clear to auscultation. HEART: Regular rate and rhythm. BREASTS: Are without mass or discharge. There is slight redness in the crease beneath the left breast. AXILLARY EXAM: Negative for adenopathy. BACK: Negative for CVA tenderness. ABDOMEN: Soft, mildly obese, nontender, without palpable masses. Beneath the left abdominal pannus there is slight redness in the crease PELVIC EXAM: Normal external genitalia with mild atrophy. Cervix and vagina appear normal with mild atrophy. There is no unusual discharge. There is no evidence of prolapse. The uterus is midposition, nongravid size and nontender. There are no palpable adnexal masses or tenderness. There is some redness in the right groin area lateral to the vulva. RECTAL EXAM: Rectovaginal exam reveals an irregular fullness/mass in the right adnexal region which measures about 3 x 3 cm and is nontender. This is not in the rectum in the rectum. There are no other palpable masses and stool is Hemoccult negative. EXTREMITIES: Nontender. IMPRESSION: 1. 62-year-old menopausal female with a palpable pelvic mass noted on rectovaginal exam in the right adnexal region. Differential diagnosis will include colonic stool, ovarian mass, fallopian tube mass, or other non- gynecologic mass. 2. Intermittent vulvar pruritus without significant physical findings on exam. 3. Intertrigo noted in the creases beneath the left breast, beneath the left pannus, and in the right groin areas. PLAN: 1. Pap smears will be discontinued since she had a negative Pap smear cotest on 06/02/2022. 2. Self breast awareness was discussed with the patient. We have also discussed symptoms associated with inflammatory breast cancer. 3. Screening mammogram will be done today. 4. Ultrasound was recommended because of the possible pelvic mass noted on rectovaginal exam today. The ultrasound order slip was given to the patient for this. 5. I recommended that she buy [id number] antifungal cream, such as the cream used for athlete's foot feet, 4 the intertrigo as described above. 6. Kenalog 0.1% cream twice a day as needed for vulvar itching. The electronic prescription will be sent to [facility] pharmacy in [facility]. 7. She was advised to return in one year for her annual well woman exam.
--- NOTE | 2023-06-13 23:35 | MM ---
Reason for Exam: Screening (asymptomatic). Last screening mammogram was performed 12 month(s) ago. Patient History: Menarche at age 12. Patient has no children. Postmenopausal. Risk Values: Natalia 5 year model risk: 1.6%. NCI Lifetime model risk: 6.6%. Prior Study Comparison: 05/20/2021 Bilateral Screening Mammogram, [facility]. 05/27/2021 Right Diagnostic Mammogram, [facility]. 06/02/2022 Bilateral MG 3D screening mammo w/cad, [facility]. Tissue Density: The breast tissue is heterogeneously dense. This may lower the sensitivity of mammography. Findings: Analyzed By CAD. Areas of bilateral asymmetric densities remain unchanged. There is no suspicious group of microcalcifications or new suspicious mass in either breast. Overall Assessment: Benign, BI-RAD 2 Management: Screening Mammogram of both breasts in 1 year. . Patient should continue monthly self-breast exams. A clinical breast exam by your physician is recommended on an annual basis. This exam should not preclude additional follow-up of suspicious palpable abnormalities. Note on Natalia scores and lifetime risk: 1. A Natalia score greater than 3% is considered moderate risk. If this is the case, consider specialist referral to assess eligibility for a risk reducing agent. 2. If overall lifetime risk for the development of breast cancer is 20% or higher, the patient may qualify for future screening with alternating mammogram and breast MRI. Electronically signed and approved by: Kavin Wong DO
== END ==
LOC: WWCWWP 09:07
PROVIDERS: ATTEND Obstetrics & Gynecology
DX: Z01.419 Encounter for gynecological examination (general) (routine) without abnormal findings (principal); E11.9 Type 2 diabetes mellitus without complications; E78.5 Hyperlipidemia, unspecified; I10 Essential (primary) hypertension; K21.9 Gastro-esophageal reflux disease without esophagitis; L30.4 Erythema intertrigo; M19.90 Unspecified osteoarthritis, unspecified site; Z79.899 Other long term (current) drug therapy; Z12.31 Encounter for screening mammogram for malignant neoplasm of breast; Z78.0 Asymptomatic menopausal state; Z87.891 Personal history of nicotine dependence
CPT/HCPCS: 77063; 77067

== ENCOUNTER → 2024-06-27 | Outpatient (CLI) | payer MEDICARE ==
[2024-06-27 07:59] VITALS: BP 130/80; PULSE 75; RESP 17; TEMP 98.2
--- NOTE | 2024-06-27 08:23 | P.HPOB ---
History of Present Illness H&P Date: 06/27/24 Chief Complaint: The patient is here for her routine gynecologic exam and ma mmogram. This is a 63-year-old G0 with an LMP of 2008. The patient continues to occasionally use Kenalog cream as needed for intermittent vulvar pruritus. She states she does not use it very frequently. She is otherwise without gynecologic complaints. Review of Systems The patient has lost 5 pounds over the last year. She denies respiratory, cardiac, or G.I. problems. Past Medical History Past Medical History: Diabetes Mellitus, GERD/Reflux, Hyperlipidemia, Hypertension, Osteoarthritis (OA), Skin Disorder Additional Past Medical History / Comment(s): hx peptic ulcer yrs ago, psoriasis, type II diabetes. 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 History of Any Multi-Drug Resistant Organisms: None Reported Past Surgical History: No Surgical Hx Reported Additional Past Surgical History / Comment(s): D&C. Colonoscopy 2019(Next after 10yr). Past Anesthesia/Blood Transfusion Reactions: Family History of Problems w/ Anesthesia Additional Past Anesthesia/Blood Transfusion Reaction / Comment(s): sister-PONV Past Psychological History: No Psychological Hx Reported Smoking Status: Former smoker Past Alcohol Use History: Occasional (0 to 1/month.) Additional Past Alcohol Use History / Comment(s): quit smoking 2009, smoked for 5 yrs, < 1 PPD Past Drug Use History: None Reported Additional History: She has been a since 2022 and is not sexually active. She is retired. - Past Family History Father Family Medical History: Cancer, Myocardial Infarction ([place]) Additional Family Medical History / Comment(s): HEART DISEASE, BONE cancer Mother Family Medical History: Rheumatoid Arthritis (RA) Brother(s) Family Medical History: Cancer Additional Family Medical History / Comment(s): Gastric cancer. Medications and Allergies Home Medications Medication Instructions Recorded Confirmed Type Dapagliflozin/Metformin HCl 1 each PO 1800 12/21/17 06/08/23 History [Xigduo Xr 5 mg-1,000 mg Tablet] Multivitamins, Thera [Multivitamin 1 tab PO DAILY 12/21/17 06/08/23 History (formulary)] lisinopriL [Zestril] 10 mg PO 1800 12/21/17 06/08/23 History Atorvastatin [Lipitor] 10 mg PO 1800 12/26/18 06/08/23 History [place]-3S/Dha/Epa/Fish Oil/D3 [Fish 1 each PO 1800 12/26/18 06/08/23 History Oil Gummies] Cholecalciferol [Vitamin D3 (25 5,000 unit PO DAILY 04/16/20 06/08/23 History Mcg = 1000 Iu)] Nystatin 100,000 Unit/gm Powd 1 applic TOPICAL BID 10 Days #1 05/20/21 06/08/23 Rx [Mycostatin Powder] bottle Diclofenac Sodium [Diclofenac 1 dose PO DAILY 06/08/23 06/08/23 History Sodium 0.1% Ophth Soln] Omeprazole 20 mg PO DAILY 06/08/23 06/08/23 History Semaglutide [Ozempic] 2 mg INJ WEEKLY 06/08/23 06/08/23 History Triamcinolone 0.1% Cream [Kenalog 1 applicatio TOPICAL BID PRN #30 gm 06/08/23 Rx 0.1% Cream] Fenofibrate 54 mg PO DAILY 06/27/24 06/27/24 History Meloxicam [Mobic] 15 mg PO DAILY 06/27/24 06/27/24 History Allergies Allergy/AdvReac Type Severity Reaction Status Date / Time No Known Allergies Allergy Verified 06/27/24 07:55 Exam Vital Signs Temp Pulse Resp BP Pulse Ox 06/27/24 07:57 98.2 F 75 17 130/80 97 Intake and Output 06/26/24 06/27/24 06/27/24 22:59 06:59 14:59 Other: Weight 89.811 kg Height 5 feet 3 inches, weight 198 pounds, BMI 35.1 This is a well-developed well-nourished white female who is alert and oriented times 3 in no acute distress. HEENT: Within normal limits. NECK: Supple without mass or thyromegaly. CHEST AND LUNGS: Clear to auscultation. HEART: Regular rate and rhythm. BREASTS: Are without mass or discharge. AXILLARY EXAM: Negative for adenopathy. BACK: Negative for CVA tenderness. ABDOMEN: Soft, nontender, without palpable masses. PELVIC EXAM: External genitalia reveals mild to moderate atrophy with mild generalized erythema. Cervix and vagina appear normal with moderate atrophy. There is no unusual discharge. There is no evidence of prolapse. The uterus is midposition, nongravid size and nontender. There are no palpable adnexal masses or tenderness. RECTAL EXAM: Rectovaginal exam is negative for mass or tenderness and is negative for occult blood. EXTREMITIES: Nontender. IMPRESSION: 1. 63-year-old menopausal female with mild vulvar irritation and intermittent pruritus improved with Kenalog cream as needed. PLAN: 1. Pap smears have been discontinued. 2. Self breast awareness was discussed with the patient. We have also discussed symptoms associated with inflammatory breast cancer. 3. Screening mammogram will be done today. 4. A prescription for Kenalog 0.1% cream will be sent to [facility] pharmacy in [facility]. She will use this twice daily as needed for vulvar irritation. She will be given 3 refills. 5. She was advised to return in one year for her annual well woman exam.
--- NOTE | 2024-06-29 11:04 | MM ---
Reason for Exam: Screening (asymptomatic). Last mammogram was performed 1 year(s) and 1 month(s) ago. Patient History: Menarche at age 12. Patient has no children. Postmenopausal. Risk Values: Natalia 5 year model risk: 1.7%. NCI Lifetime model risk: 6.3%. Prior Study Comparison: 05/27/2021 Right Diagnostic Mammogram, [facility]. 06/02/2022 Bilateral MG 3D screening mammo w/cad, [facility]. 06/08/2023 Bilateral MG 3D screening mammo w/cad, [facility]. Tissue Density: There are scattered areas of fibroglandular density. Findings: Analyzed By CAD. Right breast: There is no suspicious group of microcalcifications or new suspicious mass. Left breast: There is no suspicious group of microcalcifications or new suspicious mass. Overall Assessment: Negative, BI-RAD 1 Management: Screening Mammogram of both breasts in [address] [facility] will attempt to contact patient to return for supplemental views and ultrasound if indicated. Patient should continue monthly self-breast exams. A clinical breast exam by your physician is recommended on an annual basis. This exam should not preclude additional follow-up of suspicious palpable abnormalities. Note on Natalia scores and lifetime risk: 1. A Natalia score greater than 3% is considered moderate risk. If this is the case, consider specialist referral to assess eligibility for a risk reducing agent. 2. If overall lifetime risk for the development of breast cancer is 20% or higher, the patient may qualify for future screening with alternating mammogram and breast MRI. [facility], , 06/29/2024 11:01 AM. Electronically signed and approved by: Kavin Wong DO
== END ==
LOC: WWCWWP 07:44
PROVIDERS: ATTEND Obstetrics & Gynecology
DX: Z12.31 Encounter for screening mammogram for malignant neoplasm of breast (principal); L29.2 Pruritus vulvae; Z78.0 Asymptomatic menopausal state; Z87.891 Personal history of nicotine dependence